=== PATIENT | male | born 1955 | race Caucasian/White ===

== ENCOUNTER 2016-07-03 18:50 | Emergency (ER) | payer MEDICARE ==
[2016-07-03] MEDS ORDERED: methylPREDNISolone Sod Succ/PF 125 MG/2 ML VIAL ONE (19:03)
--- NOTE | 2016-07-03 19:14 | PICIS ---
[facility] EMERGENCY RECORD TRIAGE (18:56 MBOS) TRIAGE NOTES: was stung by a bee inside his mouth at 1400. (18:56 MBOS) PATIENT: NAME: Cyril Levine, AGE: 60, GENDER: male, : Sun 1955, TIME OF GREET: Sat Jul 03, 2016 18:51, ECODE BILLING MAP: [facility], SSN: [id number], Zip Code: [id number], KG WEIGHT: 99.79, PHONE: , , , PERSON ID: [id number], PCP: none. (18:56 MBOS) COMPLAINT: TONSIL BEE STING. (18:56 MBOS) ADMISSION: URGENCY: 3 Urgent, ADMISSION SOURCE: Home, TRANSPORT: CAR, BED: ER -03. (18:56 MBOS) ASSESSMENT: Assessment: redness and minor swelling to right tonsil. Patient denies any difficulty breathing. Took 3 Benadryl., Additional Triage notes: Patient had a bee in his coffee that stung him in the tonsil. (19:00 MBOS) PAIN: Patient complains of pain described as, on a scale 0-10 patient rates pain as 10. (19:00 MBOS) IMMUNIZATIONS: Flu vaccine not up to date, Tetanus not up to date, Pneumococcal vaccine not up to date. (19:00 MBOS) SIRS SCORING: Heart Rate 55-109 (0), Temp range 96.8-101.1 (0), respiratory rate 12-24 (0), Mental Status altered: no (0). (19:00 MBOS) PROVIDERS: TRIAGE NURSE: Angelina King RN. (18:56 MBOS) VITAL SIGNS: BP 182/84, Pulse 63, Resp 20, Temp 97.9, (Oral), Pain 10, O2 Sat 94, on Room Air, Time 07/03/2016 18:54. (18:54 MBOS) KNOWN ALLERGIES none CURRENT MEDICATIONS (18:56 MBOS) None VITAL SIGNS (18:54 MBOS) VITAL SIGNS: BP: 182/84, Pulse: 63, Resp: 20, Temp: 97.9 (Oral), Pain: 10, O2 sat: 94 on Room Air, Time: 07/03/2016 18:54. NURSING ASSESSMENT: ENT (19:00 MBOS) CONSTITUTIONAL: Patient arrives ambulatory, Gait steady, History obtained from patient, Patient appears comfortable, Patient cooperative, Patient alert, Oriented to person, place and time, Skin warm, Skin dry, Skin normal in color, Mucous membranes pink, Mucous membranes moist, Patient is well-groomed, Patient complains of bee sting to tonsil. PAIN: to the throat, on a scale 0-10 patient rates pain as 10. ENT: Ear assessment findings include ear normal to inspection, Nasal assessment findings include nose normal to inspection, Sinuses normal, Nasal mucosa normal, Mouth and throat assessment &a-1R&a+25V*p+0X*x3792M*c202B*c15G*c2P*p-0X&a-25V&a+1R Name: Cyril Levine : 1955 M60 MedRec: [id number] AcctNum: [id number] Prepared: Sat Jul 03, 2016 19:31 by Interface Page 1 of 4 pMD [facility] EMERGENCY RECORD findings include mouth, Tonsils, normal on the left, swollen +1 on the right, redness to right tonsil, Able to swallow, Speech normal, no associated fever, no associated headache, no associated decrease in oral intake. SAFETY: Side rails up, Cart/Stretcher in lowest position, Family at bedside, Call light within reach, Hospital ID band on. NURSING PROCEDURE: DISCHARGE NOTE (19:21 MBOS) DISCHARGE: Patient discharged to home, ambulating without assistance, family driving, accompanied by other family member, Summary of Care printed/ provided, Discharge instructions given to patient, Simple or moderate discharge teaching performed, Prescriptions given and instructions on side effects given, Above person(s) verbalized understanding of discharge instructions and follow-up care, Patient treated and evaluated by physician. MEDICATION ADMINISTRATION SUMMARY Drug Name: Solu-MEDROL injection, Dose Ordered: 125 mg, Route: Intramuscular, Status: Given, Time: 19:09 07/03/2016, Detailed record available in Medication Service section. MEDICATION SERVICE (19:09 [facility]) Solu-MEDROL injection: Order: Solu-MEDROL injection (methylprednisolone sod succ) - Dose: 125 mg : Intramuscular Ordered by: Christiano Jimenez MD Entered by: Christiano Jimenez MD Sat Jul 03, 2016 19:03 , Acknowledged by: Angelina King RN Sat Jul 03, 2016 19:03 Documented as given by: Angelina King RN Sat Jul 03, 2016 19:09 Patient, Medication, Dose, Route and Time verified prior to administration. IM medication, Medication administered to right buttock, Patient appears Awake and alert- acceptable, Correct patient, time, route, dose and medication confirmed prior to administration, Patient advised of actions and side-effects prior to administration, Allergies confirmed and medications reviewed prior to administration, Patient in position of comfort, Side rails up, Cart in lowest position, Family at bedside. HPI BEE STING (19:05 BRENNEN) CHIEF COMPLAINT: Patient presents for evaluation of bee sting, Patient presents for evaluation of Pt was stung by a bee on his right tonsil 5 hours ago when he drank a bee in his drink. Sore throat that isn't getting better so he came for eval. Took 75mg benadryl at 1400. HISTORIAN: History provided by patient. LOCATION: Symptoms are localized. QUALITY: Pain is dull in nature. TIME COURSE: Sudden onset of symptoms, There has been no change in the patient's symptoms over time, are &a-1R&a+25V*p+0X*k1306H*c202B*c15G*c2P*p-0X&a-25V&a+1R Name: Cyril Levine : 1955 M60 MedRec: [id number] AcctNum: [id number] Prepared: Sat Jul 03, 2016 19:31 by Interface Page 2 of 4 pMD [facility] EMERGENCY RECORD constant. ASSOCIATED WITH: No associated chest pain, No associated facial symptoms, No associated fever, No associated itching, No associated shortness of breath, No associated throat tightness. EXACERBATED BY: Patient's condition exacerbated by swallowing. RELIEVED BY: Patient's condition relieved by nothing. ROS (19:07 BRUCE) CONSTITUTIONAL: Historian denies chills, denies fever. ENT: Historian denies rhinorrhea, reports sore throat, denies stridor. CARDIOVASCULAR: Historian denies chest pain. RESPIRATORY: Historian denies cough, denies shortness of breath. GI: Historian denies abdominal pain, denies nausea, denies vomiting. SKIN: Historian denies rash. NEUROLOGIC: Historian denies headache, slight dizziness since taking the benadryl. PAST MEDICAL HISTORY MEDICAL HISTORY: No past medical history, Flu vaccine not up to date, Tetanus not up to date, Pneumococcal vaccine not up to date. (19:00 MBOS) MALE SURGICAL HISTORY: Surgical history of orthopedic surgery, right leg fracture. (19:00 MBOS) PSYCHIATRIC HISTORY: No previous psychiatric history. (19:00 MBOS) SOCIAL HISTORY: Patient drinks socially, once a month, Patient denies drug use, Patient currently uses tobacco, Patient smokes 1.5 packs per day. (19:00 MBOS) NOTES: Nursing records reviewed, Agree with nursing records. (19:08 [facility]) PHYSICAL EXAM (19:07 [facility]) CONSTITUTIONAL: Vital signs reviewed, Patient afebrile, Patient appears non toxic, Patient alert and oriented to person, place and time. EYES: Eye exam included findings of eyelids normal to inspection, Pupils equally round and reactive to light, Conjunctiva normal. ENT: Pharynx exam normal, Uvula exam normal, Tonsils, without exudates, Right tonsil mildly red and swollen compared to the left. No significant obstruction., Mouth exam normal, mucous membranes moist. NECK: Neck exam included findings of normal range of motion, no cervical adenopathy. RESPIRATORY CHEST: Respiratory exam included findings of no respiratory distress, Breath sounds clear, No wheezing, No rales, No rhonchi, Chest exam included findings of chest movement symmetrical. CARDIOVASCULAR: Cardiovascular exam included findings of heart rate regular rate and rhythm, Heart sounds normal. &a-1R&a+25V*p+0X*v1100T*c202B*c15G*c2P*p-0X&a-25V&a+1R Name: Cyril Levine : 1955 M60 MedRec: [id number] AcctNum: [id number] Prepared: Sat Jul 03, 2016 19:31 by Interface Page 3 of 4 pMD [facility] EMERGENCY RECORD NEURO: [place] coma scale 15, Neuro exam findings include patient oriented to person, place and time, Speech normal. SKIN: Skin exam included findings of skin warm, dry, and normal in color, no rash. PSYCHIATRIC: Normal affect. EVENTS TRANSFER: Triage to Emergency Emergency Room -03. (Sat Jul 03, 2016 18:56 MBOS) Removed from Emergency Emergency Room -03. (19:22 MBOS) PROBLEM LIST No recorded problems DIAGNOSIS (19:03 JLOY) FINAL: PRIMARY: ACUTE PHARYNGITIS UNSPECIFIED. DISPOSITION PATIENT: Disposition Type: Discharge, Disposition: *Discharge Home. (19:03 JLOY) Patient left the department. (19:22 MBOS) INSTRUCTION (19:04 JLOY) DISCHARGE: BEE STING LOCAL REACTION. FOLLOWUP: Follow up with Primary Care Physician in 7-10 days. SPECIAL: Use Chloraseptic spray or drops for the sore throat. PRESCRIPTION (19:03 JLOY) predniSONE oral: TABLET : 20 mg : ORAL : Quantity: 40 Unit: mg Route: ORAL Schedule: once a day Dispense: 4 DAYS May substitute. Refills: No Refills . NOTES: No Refills. IMAGING (19:22 MBOS) *DISCHARGE INSTRUCTIONS RECEIPT: Image captured from scanner. *SUPPLY CHARGE SHEET: Image captured from scanner. ADMIN (19:08 [facility]) DIGITAL SIGNATURE: MD Jimenez Joshua. Stoddard: BRENNEN=MD Jimenez Joshua MBOS=VIK King, Angelina &a-1R&a+25V*p+0X*g2339S*c202B*c15G*c2P*p-0X&a-25V&a+1R Name: Cyril Levine : 1955 M60 MedRec: [id number] AcctNum: [id number] Prepared: Sat Jul 03, 2016 19:31 by Interface Page 4 of 4 pMD MTDD
== END 2016-07-03 19:19 | disposition home or self-care (01) ==
LOC: NAV ERS 18:50
DX: J02.9 Acute pharyngitis, unspecified (principal); F17.210 Nicotine dependence, cigarettes, uncomplicated
CPT/HCPCS: 96372; J2930

== ENCOUNTER 2020-01-29 10:28 | Emergency (ER) | payer SELFPAY ==
[2020-01-29] MEDS ORDERED: Ketorolac Tromethamine 60 MG/2 ML VIAL ONE (11:14)
--- NOTE | 2020-01-29 11:29 | RAD ---
XR Hip Rt 2-3 View History: Pain Comparison: None. Findings: No acute fracture. Advanced degenerative joint space narrowing with subcortical cyst of the acetabulum. Femoral head/neck ring osteophytes as well as CAM deformity. Obturator ring is intact. Impression: 1. Moderate degenerative disease of the right hip without acute fracture or malalignment. 2. 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
== END 2020-01-29 11:47 | disposition home or self-care (01) ==
LOC: NAV ERS 10:28
DX: M25.551 Pain in right hip (principal); I10 Essential (primary) hypertension; F17.210 Nicotine dependence, cigarettes, uncomplicated
CPT/HCPCS: 96372; J1885

== ENCOUNTER 2021-05-02 08:46 | Emergency (ER) | payer OTHER, SELFPAY ==
[2021-05-02] MEDS ORDERED: Iopamidol 370 76% 100 ML VIAL ONE (09:00)
[2021-05-02] MEDS ORDERED: Cefepime 2 GM VIAL ONE (09:30)
[2021-05-02] MEDS ORDERED: Sodium Chloride 0.9% 100 ML ONE (09:30)
[2021-05-02] MEDS ORDERED: Ondansetron PF 4 MG/2 ML Vial ONE (09:30)
[2021-05-02] MEDS ORDERED: Morphine 4 MG/ML VIAL ONE (09:30)
[2021-05-02 09:52] LABS: #Basophils 0.1 thou/uL (0.0-0.2); #Eosinphils 0.2 thou/uL (0.0-0.7); #Lymphocytes 1.4 thou/uL (1.20-3.40); #Monocytes 0.6 thou/uL (0.11-0.59); #Neutrophils 8.8 thou/uL (1.40-6.50); %Basophils 1.3 % (0.0-1.0); %Eosinophils 1.9 % (0.0-10.0); %Lymphocytes 12.3 % (21.0-51.0); %Monocytes 5.5 % (0.0-10.0); Hemoglobin 16.3 g/dL (14.0-18.0); Mean Corpuscular HGB CONC 32.6 g/dL (32.0-36.0); Mean Corpuscular Hemoglobin 32.1 pg (27.0-31.0); Mean Corpuscular Volume 98.8 fL (78.0-98.0); Mean Platelet Volume 8.3 fL (7.4-10.4); Platelet Count 282 thou/uL (130-400); RBC Distribution Width 12.2 % (11.5-14.5); Red Blood Cell (RBC) Count 5.06 mill/uL (4.70-6.10); White Blood Cell (WBC) Count 11.2 thou/uL (4.8-10.8)
[2021-05-02 10:11] LABS: ALT (SGPT) 29 U/L (8-55); AST (SGOT) 20 U/L (5-34); Alkaline Phosphatase 68 U/L (40-110); Anion Gap 12 mmol/L (10-20); BUN (Urea Nitrogen) 13 mg/dL (8.4-25.7); Bilirubin, Total 0.6 mg/dL (0.2-1.2); Calc. Creatinine Clearance 0 mL/min (70-130); Calcium 9.6 mg/dL (7.8-10.44); Carbon Dioxide 26 mmol/L (23-31); Chloride 102 mmol/L (98-107); Globulin 3.9 g/dL (2.4-3.5); Glucose 96 mg/dL (80-115); Potassium 4.2 mmol/L (3.5-5.1); Protein, Total 7.9 g/dL (5.8-8.1); Sodium 136 mmol/L (136-145)
[2021-05-02 10:46] LABS: SARS-CoV-2 NAA Rapid Test Not Detected (NotDetected)
== END 2021-05-02 14:37 | disposition short-term general hospital (02) ==
LOC: NAV ERS 08:46
DX: L03.115 Cellulitis of right lower limb (principal); I10 Essential (primary) hypertension; F17.210 Nicotine dependence, cigarettes, uncomplicated; R79.1 Abnormal coagulation profile; Z20.822 Contact with and (suspected) exposure to COVID-19
CPT/HCPCS: 80053; 83605; 85025; 85379; 87040; 87070; 87077; 87186; 87205; 96365; 96375; J0692; J2270; J2405; J3490; Q9967; U0002